=== PATIENT | male | born 1985 | race Caucasian/White ===

== ENCOUNTER 2017-05-28 16:13 | Inpatient (IN) | payer OTHER ==
[2017-05-28 17:19] VITALS: BMI 22.2
--- NOTE | 2017-05-28 21:07 | HP ---
CIWA Score - CIWA Score Nausea/Vomitin Muscle Tremors: 4-Moderate,w/Arms Extend Anxiety: 4-Mod. Anxious/Guarded Agitation: 4-Moderately Restless Paroxysmal Sweats: 2 Orientation: 0-Oriented Tacttile Disturbances: 0-None Auditory Disturbances: 0-None Visual Disturbances: 0-None Headache: 2-Mild CIWA-Ar Total Score: 19 Admission ROS BHS - HPI Chief Complaint: Alcohol withdrawal symptoms Allergies/Adverse Reactions: Allergies Allergy/AdvReac Type Severity Reaction Status Date / Time No Known Allergies Allergy Verified 05/28/17 20:53 History of Present Illness: 31 years old male with a long history of alcohol dependence is seeking admission to detox. Patient has been to previous detox and reports 25 months of sobriety. He has past medical history of seizure. Patient denies suicidal ideation at this time. Patient is on methadone program at [facility]. He reports dosage of 70mg which is yet to be confirmed by the nurse. Exam Limitations: No Limitations - Ebola screening Have you traveled outside of the country in the last 21 days: No Have you had contact with anyone from an Ebola affected area: No Have you been sick,other than usual withdrawal symptoms: No Do you have a fever: No - Review of Systems Constitutional: Loss of Appetite, Malaise, Night Sweats, Changes in sleep EENT: reports: No Symptoms Reported Respiratory: reports: No Symptoms reported Cardiac: reports: No Symptoms Reported GI: reports: Diarrhea (x 2), Nausea, Poor Appetite, Poor Fluid Intake, Vomiting (x 5), Abdominal cramping : reports: No Symptoms Reported Musculoskeletal: reports: Muscle Pain, Muscle Weakness Integumentary: reports: No Symptoms Reported Neuro: reports: Seizure (last seizure on 05/08/2015), Tingling, Tremors Endocrine: reports: Flushing Hematology: reports: No Symptoms Reported Psychiatric: reports: Mood/Affect Appropiate, Orientated x3, Anxious Other Systems: Reviewed and Negative Patient History - Patient Medical History Hx Anemia: No Hx Asthma: No Hx Chronic Obstructive Pulmonary Disease (COPD): No Hx Cancer: No Hx Cardiac Disorders: No Hx Congestive Heart Failure: No Hx Hypertension: No Hx Hypercholesterolemia: No Hx Seizures: Yes (Last 2017. Not on medication- alcohol related) Hx Diabetes: No Hx Gastrointestinal Disorders: No Hx Liver Disease: No Hx Genitourinary Disorders: No Hx Sexually Transmitted Disorders: No Hx Renal Disease (ESRD): No Hx Thyroid Disease: No Hx Human Immunodeficiency Virus (HIV): No (Negative 2016) Hx Hepatitis C: No (Negative 2017) Hx Depression: No Hx Suicide Attempt: No (Denies suicidal ideation at this time) Hx Bipolar Disorder: No Hx Schizophrenia: No - Patient Surgical History Past Surgical History: No - PPD History Previous Implant?: Yes Documented Results: Negative w/o proof Implanted On Prior R Admission?: No PPD to be Administered?: Yes - Reproductive History Patient is a Female of Child Bearing Age (11 -55 yrs old): No (MALE) - Smoking Cessation Smoking history: Current every day smoker Aproximately how many cigarettes per day: 10 Hx Chewing Tobacco Use: No Initiated information on smoking cessation: Yes 'Breaking Loose' booklet given: 05/28/17 - Substance & Tx. History Hx Alcohol Use: Yes Hx Substance Use Treatment: Yes ([place], [place]) - Substances Abused Alcohol Route: Oral Frequency: Daily Amount used: VODKA - 2 PINTS Age of first use: 13 Date of Last Use: 05/28/17 Family Disease History - Family Disease History Family History: Denies Admission Physical Exam [facility] - Vital Signs Vital Signs: Vital Signs - 24 hr 05/28/17 17:17 Temperature 98 F Pulse Rate 120 H Respiratory 18 Rate Blood Pressure 139/94 - Physical General Appearance: Yes: Moderate Distress, Tremorous, Irritable, Sweating, Anxious HEENTM: Yes: EOMI, Normal ENT Inspection, Normal Voice, JUAN MANUEL Respiratory: Yes: Lungs Clear, Normal Breath Sounds, No Respiratory Distress Neck: Yes: Supple Breast: Yes: Breast Exam Deferred Cardiology: Yes: Regular Rhythm, Regular Rate, S1, S2 Abdominal: Yes: Normal Bowel Sounds, Soft Genitourinary: Yes: Within Normal Limits Back: Yes: Normal Inspection Extremities: Yes: Tremors Neurological: Yes: Alert, Normal Mood/Affect, Normal Response Integumentary: Yes: Dry Lymphatic: Yes: Within Normal Limits - Diagnostic (1) Alcohol dependence with uncomplicated withdrawal Current Visit: Yes Status: Chronic (2) Seizures Current Visit: Yes Status: Chronic Cleared for Admission [facility] - Detox or Rehab [facility] Level of Care: Medically Managed Detox Regimen/Protocol: Librium [facility] Breath Alcohol Content Breath Alcohol Content: 0.225 Urine Drug Screen - Results Drug Screen Negative: No Urine Drug Screen Results: MTD-Methadone
[2017-05-28] MEDS ORDERED: MAGNESIUM HYDROX 2400MG/30ML ORAL SUSPENSION 30 ML CUP PO PRN (21:19)
[2017-05-28] MEDS ORDERED: guaiFENesin/D-METHORPHAN HB 10 ML UNIT-DOSE CUPS PO PRN (21:19)
[2017-05-28] MEDS ORDERED: ACETAMINOPHEN 325 MG TABLET (FP) PO PRN (21:19)
[2017-05-28] MEDS ORDERED: LOPERAMIDE HCL 2 MG CAPSULE PO PRN (21:19)
[2017-05-28] MEDS ORDERED: MAGNESIUM CITRATE 300 ML BOTTLE PO PRN (21:19)
[2017-05-28] MEDS ORDERED: MENTHOL/PHENOL 1 EACH UD MM PRN (21:19)
[2017-05-28] MEDS ORDERED: P-EPHED 60MG/TRIPROLIDI 2.5MG TABLET PO PRN (21:19)
[2017-05-28] MEDS ORDERED: IBUPROFEN 400 MG TABLET (FP) PO PRN (21:19)
[2017-05-28] MEDS ORDERED: MAG HYDROX/AL HYDROX/SIMETH 30 ML UNIT-DOSE CUP PO PRN (21:19)
[2017-05-28] MEDS: THIAMINE HCL 100 MG TABLET (FP) PO SCH (22:50)
[2017-05-28] MEDS: chlordiazePOXIDE HCL 25 MG CAPSULE PO SCH (22:50)
[2017-05-28 23:07] LABS: URINE APPEARANCE CLEAR; URINE BILIRUBIN NEGATIVE (NEGATIVE); URINE BLOOD NEGATIVE (NEGATIVE); URINE COLOR STRAW; URINE GLUCOSE (UA) NEGATIVE (NEGATIVE); URINE KETONE NEGATIVE (NEGATIVE); URINE LEUK ESTERASE NEGATIVE (NEGATIVE); URINE NITRITE NEGATIVE (NEGATIVE); URINE PROTEIN NEGATIVE (NEGATIVE); URINE UROBILINOGEN NEGATIVE mg/dL (0.2-1.0)
[2017-05-29] MEDS: chlordiazePOXIDE HCL 25 MG CAPSULE PO SCH ×4 (05:33→22:12)
[2017-05-29] MEDS ORDERED: METHADONE HCL 40 MG DISPERSABLE TABLET PO SCH (08:30)
[2017-05-29] MEDS ORDERED: METHADONE HCL 40 MG DISPERSABLE TABLET ONE (09:37)
[2017-05-29] MEDS ORDERED: METHADONE HCL 10 MG TABLET ONE (09:37)
[2017-05-29] MEDS ORDERED: METHADONE 40 MG, METHADONE 30 MG PO ONE (10:00)
[2017-05-29] MEDS ORDERED: METHADONE HCL 10 MG TABLET PO ONE (10:00)
--- NOTE | 2017-05-29 10:14 | PN ---
S CIWA - CIWA Score Nausea/Vomitin Muscle Tremors: 3 Anxiety: 3 Agitation: 2 Paroxysmal Sweats: 1-Minimal Palms Moist Orientation: 0-Oriented Tacttile Disturbances: 1-Very Mild Itch/Numbness Auditory Disturbances: 1-Very Mild Visual Disturbances: 0-None Headache: 2-Mild CIWA-Ar Total Score: 16 BHS Progress Note (SOAP) Subjective: ALERT,IRRITABLE,ANXIOUS,INTERRUPTED SLEEP,TREMOR Objective: 05/29/17 10:11 Vital Signs Temperature 97.9 F 05/29/17 09:49 Pulse Rate 87 05/29/17 09:49 Respiratory Rate 18 05/29/17 09:49 Blood Pressure 124/63 05/29/17 09:49 O2 Sat by Pulse Oximetry (%) EKG SINUS TACHYCARDIA 101/MIN RBBB NO CHEST PAIN,NO SOB,NO DIZZINESS Laboratory Last Values Urine Color Straw 05/28/17 21:28 Urine Appearance Clear 05/28/17 21:28 Urine pH 7.0 (5.0-8.0) 05/28/17 21:28 Ur Specific [place] 1.005 (1.001-1.035) 05/28/17 21:28 Urine Protein Negative (NEGATIVE) 05/28/17 21:28 Urine Glucose (UA) Negative (NEGATIVE) 05/28/17 21:28 Urine Ketones Negative (NEGATIVE) 05/28/17 21:28 Urine Blood Negative (NEGATIVE) 05/28/17 21:28 Urine Nitrite Negative (NEGATIVE) 05/28/17 21:28 Urine Bilirubin Negative (NEGATIVE) 05/28/17 21:28 Urine Urobilinogen Negative mg/dL (0.2-1.0) 05/28/17 21:28 Ur Leukocyte Esterase Negative (NEGATIVE) 05/28/17 21:28 LABS PENDING Assessment: 05/29/17 10:13 WITHDRAWAL SYMPTOM Plan: CONTINUE DETOX
[2017-05-29 10:18] LABS: HEMOGLOBIN 15.9 GM/dL (11.7-16.9); MCH 33.3 pg (25.7-33.7); MCHC 33.8 g/dl (32.0-35.9); MEAN CELL VOLUME 98.4 fl (80-96); MEAN PLT VOLUME 7.6 fl (7.5-11.1); PLATELET COUNT 201 K/MM3 (134-434); RBC 4.78 M/mm3 (4.00-5.60); RDW 12.3 % (11.9-15.9); WHITE BLOOD COUNT 7.2 K/mm3 (4.0-10.0)
[2017-05-29] MEDS: NICOTINE 14 MG/24 HOURS TOPICAL PATCH TD SCH (10:19)
[2017-05-29] MEDS: PRENATAL VITAMINS W/ FOLIC ACID TABLET (FP) PO SCH (10:19)
[2017-05-29] MEDS: NICOTINE POLACRILEX 2 MG GUM BC PRN ×3 (10:20→21:18)
--- NOTE | 2017-05-29 10:29 | EKG ---
Test Reason : Blood Pressure : / mmHG Vent. Rate : 101 BPM Atrial Rate : 101 BPM P-R Int : 194 ms QRS Dur : 098 ms QT Int : 336 ms P-R-T Axes : 057 -18 061 degrees QTc Int : 435 ms SINUS TACHYCARDIA LEFT ATRIAL ENLARGEMENT INCOMPLETE RIGHT BUNDLE BRANCH BLOCK INFERIOR INFARCT , AGE UNDETERMINED CANNOT RULE OUT ANTERIOR INFARCT , AGE UNDETERMINED ABNORMAL ECG NO PREVIOUS ECGS AVAILABLE Confirmed by LIO ORTEGA, WADE ([id number]) on 05/29/2017 10:28:51 AM Referred By: Confirmed By:WADE VACA MD
[2017-05-29 10:30] LABS: CHLORIDE 92 mmol/L (98-107); POTASSIUM 4.5 mmol/L (3.5-5.1); SODIUM 135 mmol/L (136-145)
[2017-05-29 10:41] LABS: ALK PHOS 292 U/L (45-117); ANION GAP 11 (8-16); BILIRUBIN,TOTAL 0.9 mg/dL (0.2-1.0); BLOOD UREA NITROGEN 8 mg/dL (7-18); CALCIUM 9.1 mg/dL (8.5-10.1); CO2 32 mmol/L (21-32); CREATININE 0.6 mg/dL (0.7-1.3); GLUCOSE,RANDOM 91 mg/dL (74-106); SGOT/AST 266 U/L (15-37); SGPT/ALT 332 U/L (12-78); TOT PROT 7.6 g/dl (6.4-8.2)
[2017-05-29] MEDS: chlordiazePOXIDE HCL 25 MG CAPSULE PO PRN (14:39)
[2017-05-29] MEDS: THIAMINE HCL 100 MG TABLET (FP) PO SCH (22:12)
[2017-05-29] MEDS ORDERED: diphenhydrAMINE HCL 25 MG CAPSULE (FP) PO ONE (22:55)
[2017-05-30] MEDS ORDERED: METHADONE HCL 40 MG DISPERSABLE TABLET ONE (04:39)
[2017-05-30] MEDS ORDERED: METHADONE HCL 10 MG TABLET ONE (04:39)
[2017-05-30] MEDS: chlordiazePOXIDE HCL 25 MG CAPSULE PO SCH ×3 (06:00→17:47)
[2017-05-30] MEDS: METHADONE 40 MG, METHADONE 30 MG PO SCH (06:00)
[2017-05-30] MEDS ORDERED: METHADONE HCL 10 MG TABLET PO SCH (06:00)
[2017-05-30] MEDS: NICOTINE POLACRILEX 2 MG GUM BC PRN ×4 (09:15→22:16)
--- NOTE | 2017-05-30 10:43 | PN ---
S CIWA - CIWA Score Nausea/Vomitin Muscle Tremors: 3 Anxiety: 3 Agitation: 2 Paroxysmal Sweats: 1-Minimal Palms Moist Orientation: 0-Oriented Tacttile Disturbances: 1-Very Mild Itch/Numbness Auditory Disturbances: 1-Very Mild Visual Disturbances: 0-None Headache: 2-Mild CIWA-Ar Total Score: 16 BHS Progress Note (SOAP) Subjective: ALERT,IRRITABLE,ANXIOUS,INTERRUPTED SLEEP,TREMOR Objective: 05/30/17 10:39 Vital Signs Temperature 97.2 F L 05/30/17 09:47 Pulse Rate 80 05/30/17 09:47 Respiratory Rate 18 05/30/17 09:47 Blood Pressure 114/74 05/30/17 09:47 O2 Sat by Pulse Oximetry (%) Laboratory Last Values WBC 7.2 K/mm3 (4.0-10.0) 05/29/17 07:00 RBC 4.78 M/mm3 (4.00-5.60) 05/29/17 07:00 Hgb 15.9 GM/dL (11.7-16.9) 05/29/17 07:00 Hct 47.0 % (35.4-49) 05/29/17 07:00 MCV 98.4 fl (80-96) H 05/29/17 07:00 MCH 33.3 pg (25.7-33.7) 05/29/17 07:00 MCHC 33.8 g/dl (32.0-35.9) 05/29/17 07:00 RDW 12.3 % (11.9-15.9) 05/29/17 07:00 Plt Count 201 K/MM3 (134-434) 05/29/17 07:00 MPV 7.6 fl (7.5-11.1) 05/29/17 07:00 Sodium 135 mmol/L (136-145) L 05/29/17 07:00 Potassium 4.5 mmol/L (3.5-5.1) 05/29/17 07:00 Chloride 92 mmol/L (98-107) L 05/29/17 07:00 Carbon Dioxide 32 mmol/L (21-32) 05/29/17 07:00 Anion Gap 11 (8-16) 05/29/17 07:00 BUN 8 mg/dL (7-18) 05/29/17 07:00 Creatinine 0.6 mg/dL (0.7-1.3) L 05/29/17 07:00 Creat Clearance w eGFR > 60 (>60) 05/29/17 07:00 Random Glucose 91 mg/dL (74-106) 05/29/17 07:00 Calcium 9.1 mg/dL (8.5-10.1) 05/29/17 07:00 Total Bilirubin 0.9 mg/dL (0.2-1.0) 05/29/17 07:00 AST 266 U/L (15-37) H 05/29/17 07:00 ALT 332 U/L (12-78) H 05/29/17 07:00 Alkaline Phosphatase 292 U/L (45-117) H 05/29/17 07:00 Total Protein 7.6 g/dl (6.4-8.2) 05/29/17 07:00 Albumin 4.0 g/dl (3.4-5.0) 05/29/17 07:00 Urine Color Straw 05/28/17 21:28 Urine Appearance Clear 05/28/17 21:28 Urine pH 7.0 (5.0-8.0) 05/28/17 21:28 Ur Specific [place] 1.005 (1.001-1.035) 05/28/17 21:28 Urine Protein Negative (NEGATIVE) 05/28/17 21:28 Urine Glucose (UA) Negative (NEGATIVE) 05/28/17 21:28 Urine Ketones Negative (NEGATIVE) 05/28/17 21: Urine Blood Negative (NEGATIVE) 05/28/17 21: Urine Nitrite Negative (NEGATIVE) 05/28/17 21:28 Urine Bilirubin Negative (NEGATIVE) 05/28/17 21:28 Urine Urobilinogen Negative mg/dL (0.2-1.0) 05/28/17 21:28 Ur Leukocyte Esterase Negative (NEGATIVE) 05/28/17 21:28 RPR Titer Nonreactive (NONREACTIVE) 05/29/17 07:00 Assessment: 05/30/17 10:41 WITHDRAWAL SYMPTOM Plan: CONTINUE DETOX,D/C TYLENOL DUE TO ELEVATION OF ALT,AST,ALKALINE PHOSPHATASE, REPEAT ALT,AST,INR IN AM
[2017-05-30] MEDS: PRENATAL VITAMINS W/ FOLIC ACID TABLET (FP) PO SCH (10:54)
[2017-05-30] MEDS: NICOTINE 14 MG/24 HOURS TOPICAL PATCH TD SCH (10:54)
[2017-05-30] MEDS: chlordiazePOXIDE HCL 25 MG CAPSULE PO PRN (14:31)
[2017-05-30] MEDS: chlordiazePOXIDE 5 MG CAPSULE PO SCH (22:15)
[2017-05-30] MEDS: THIAMINE HCL 100 MG TABLET (FP) PO SCH (22:15)
[2017-05-31] MEDS ORDERED: METHADONE HCL 40 MG DISPERSABLE TABLET ONE (04:47)
[2017-05-31] MEDS ORDERED: METHADONE HCL 10 MG TABLET ONE (04:48)
[2017-05-31] MEDS: METHADONE 40 MG, METHADONE 30 MG PO SCH (06:01)
[2017-05-31] MEDS: chlordiazePOXIDE 5 MG CAPSULE PO SCH ×3 (06:01→17:44)
[2017-05-31] MEDS: NICOTINE POLACRILEX 2 MG GUM BC PRN ×4 (06:12→23:10)
[2017-05-31 10:13] LABS: INR 0.85 (0.82-1.09); PROTHROMBIN TIME (PATIENT) 9.6 SEC (9.98-11.88)
[2017-05-31 10:29] LABS: SGOT/AST 93 U/L (15-37); SGPT/ALT 167 U/L (12-78)
[2017-05-31] MEDS: PRENATAL VITAMINS W/ FOLIC ACID TABLET (FP) PO SCH (11:07)
[2017-05-31] MEDS: NICOTINE 14 MG/24 HOURS TOPICAL PATCH TD SCH (11:07)
--- NOTE | 2017-05-31 12:42 | PN ---
S Progress Note (SOAP) Subjective: ALERT,IRRITABLE,ANXIOUS,INTERRUPTED SLEEP, Objective: 05/31/17 12:41 Vital Signs Temperature 98.2 F 05/31/17 10:00 Pulse Rate 81 05/31/17 10:00 Respiratory Rate 18 05/31/17 10:00 Blood Pressure 129/67 05/31/17 10:00 O2 Sat by Pulse Oximetry (%) Laboratory Results - last 24 hr 05/31/17 05/31/17 07:00 07:00 PT with INR 9.60 L INR 0.85 L AST 93 H D ALT 167 H D Assessment: 05/31/17 12:41 WITHDRAWAL SYMPTOM Plan: CONTINUE DETOX,DISCHARGE IN AM
[2017-05-31] MEDS: THIAMINE HCL 100 MG TABLET (FP) PO SCH (23:08)
[2017-05-31] MEDS: chlordiazePOXIDE HCL 10 MG CAPSULE PO SCH (23:08)
[2017-06-01] MEDS ORDERED: METHADONE HCL 10 MG TABLET ONE (05:01)
[2017-06-01] MEDS ORDERED: METHADONE HCL 40 MG DISPERSABLE TABLET ONE (05:01)
[2017-06-01] MEDS: METHADONE 40 MG, METHADONE 30 MG PO SCH (05:29)
[2017-06-01] MEDS: chlordiazePOXIDE HCL 10 MG CAPSULE PO SCH (05:29)
[2017-06-01] MEDS: NICOTINE POLACRILEX 2 MG GUM BC PRN (05:33)
[2017-06-01 06:57] VITALS: BP 111/59; PULSE 64; TEMP 97.8
--- NOTE | 2017-06-01 09:00 | DS ---
[facility] Detox Discharge Summary Admission Date: 05/28/17 Discharge Date: 06/01/17 - History Present History: Alcohol Dependence, MMTP Additional Comments: follow up with after care program as arrangement Pertinent Past History: seizure - Physical Exam Results Vital Signs: Vital Signs Temperature 97.8 F 06/01/17 06:57 Pulse Rate 64 06/01/17 06:57 Respiratory Rate 16 06/01/17 06:57 Blood Pressure 111/59 06/01/17 06:57 O2 Sat by Pulse Oximetry (%) Pertinent Admission Physical Exam Findings: withdrawal signs and symptom Vital Signs Temperature 97.8 F 06/01/17 06:57 Pulse Rate 64 06/01/17 06:57 Respiratory Rate 16 06/01/17 06:57 Blood Pressure 111/59 06/01/17 06:57 O2 Sat by Pulse Oximetry (%) - Treatment Hospital Course: Detox Protocol Followed, Detoxed Safely, Responded well, Discharged Condition Good Patient has Accepted a Rehab Referral to: declined - Medication Discharge Medications: Ambulatory Orders Methadone [Dolophine -] 70 mg PO DAILY 05/29/17 - Diagnosis (1) Alcohol dependence with uncomplicated withdrawal Current Visit: Yes Status: Chronic (2) Seizures Current Visit: Yes Status: Chronic (3) Methadone maintenance therapy patient Current Visit: Yes Status: Acute - AMA Did Patient Leave Against Medical Advice: No
== END 2017-06-01 09:37 | disposition home or self-care (01) | DRG 773 ==
LOC: YASAS 16:13 → Y6N 20:07
PROVIDERS: ADMIT Internal Medicine; ATTEND Internal Medicine
PROC: HZ2ZZZZ Detoxification Services for Substance Abuse Treatment (ICD-10-PCS; principal; 2017-05-28)
DX: F10.230 Alcohol dependence with withdrawal, uncomplicated (principal); F11.20 Opioid dependence, uncomplicated; R00.0 Tachycardia, unspecified; I45.10 Unspecified right bundle-branch block; Z86.69 Personal history of other diseases of the nervous system and sense organs
CPT/HCPCS: 36415; 80053; 81003; 84450; 84460; 85027; 85610; 86593; 93005; 93010